=== PATIENT | female | born 1975 | race Caucasian/White ===

== ENCOUNTER 2017-01-01 20:56 | Emergency (ER) | payer SELFPAY ==
[~2017-01-01] VITALS: Ht 162.6 cm; Wt 59.0 kg
[2017-01-01 21:01] VITALS: Ht 162.6 cm; Wt 59.0 kg
== END 2017-01-01 23:42 | disposition left against medical advice (07) ==
LOC: FTE 20:56
DX: Z53.21 Procedure and treatment not carried out due to patient leaving prior to being seen by health care provider (principal)